=== PATIENT | female | born 1980 | race Caucasian/White ===

== ENCOUNTER 2023-07-15 23:03 | Emergency (ER) | payer BC, SELFPAY ==
[2023-07-15 23:06] VITALS: BP 137/76; PULSE 90; RESP 20; TEMP 37.1; O2SAT 100
--- NOTE | 2023-07-16 00:27 | ED.GENADULT ---
HPI - General Adult General Chief complaint: Skin/Abscess/Foreign Body Stated complaint: rash Time Seen by Provider: 07/16/23 00:19 Source: patient Mode of arrival: ambulatory Limitations: no limitations History of Present Illness HPI narrative: This is a 42-year-old female presents to the ED with chief complaint of a rash that started several days ago. Reports she woke up with paretic rash to the chest and abdomen. Reports that it started to spread to the arms and she went to the urgent care. She was given a steroid shot and reports that since having the steroid shot she has had more of a facial rash and intense itching. Denies any pain, fevers, chills, nausea, vomiting. She is concerned for possible infection because she uses a hot tub and saw some red streaks up the arm. Denies any bug bites, new soaps or lotions or any new skin contacts. No new pets. Related Data Allergies Allergy/AdvReac Type Severity Reaction Status Date / Time nickel Allergy Swelling Verified 07/16/23 00:30 Review of Systems Review of Systems: All systems as dictated in HPI Exam Narrative: GENERAL: Well-appearing, well-nourished, and in no acute distress. HEAD: Normocephalic, atraumatic. EYES: PERRLA and EOMI. ENT: Nares clear, no rhinorrhea or epistaxis. Mucous membranes moist. Oropharynx without tonsillar hypertrophy exudate or other lesions. NECK: Supple. No adenopathy or masses. CHEST: No respiratory distress. Clear to auscultation. No wheezes rales or rhonchi HEART: Regular rate and rhythm. No murmur heard. Normal peripheral pulses. ABDOMEN: Soft, nontender, nondistended, normal active bowel sounds. MSK: Normal range of motion. No edema. SKIN: Areas of maculopapular rash scattered throughout the torso, abdomen and arms. There is also rash around the face and periorbital area. Several urticaria noted as well. No mucosal involvement. NEURO: Alert and oriented x3. No focal deficits. PSYCH: Normal mood and affect. Course Vital Signs Vital signs: Vital Signs Temperature 98.8 F 07/15/23 23:06 Pulse Rate 90 07/15/23 23:06 Respiratory Rate 20 07/15/23 23:06 Blood Pressure 137/76 07/15/23 23:06 Pulse Oximetry 100 07/15/23 23:06 Oxygen Delivery Room Air 07/15/23 23:06 Temperature 98.8 F 07/15/23 23:06 Pulse Rate 90 07/15/23 23:06 Respiratory Rate 20 07/15/23 23:06 Blood Pressure 137/76 07/15/23 23:06 Pulse Oximetry 100 07/15/23 23:06 Oxygen Delivery Room Air 07/15/23 23:06 Medical Decision Making MDM Narrative Medical decision making narrative: This is a 42-year-old female who presents to the ED with chief complaint of allergic reaction x3 days. Vitals are normal. Exam shows urticarial rash diffusely. Airway intact. No angioedema. Unclear as to the etiology of her allergic reaction at this point. She has steroid prescription at home from urgent care and has Benadryl to take as well. Instructed to keep taking these medications. Follow-up with family doctor. Return precautions given. Patient is understanding and agreeable with plan for discharge and follow-up with PCP Vital Signs Vital Signs: Vital Signs Temperature 98.8 F 07/15/23 23:06 Pulse Rate 90 07/15/23 23:06 Respiratory Rate 20 07/15/23 23:06 Blood Pressure 137/76 07/15/23 23:06 Pulse Oximetry 100 07/15/23 23:06 Oxygen Delivery Room Air 07/15/23 23:06 Temperature 98.8 F 07/15/23 23:06 Pulse Rate 90 07/15/23 23:06 Respiratory Rate 20 07/15/23 23:06 Blood Pressure 137/76 07/15/23 23:06 Pulse Oximetry 100 07/15/23 23:06 Oxygen Delivery Room Air 07/15/23 23:06 Discharge Plan Discharge Clinical Impression: Allergic reaction Patient Disposition: Home, Self-Care Condition: Stable Instructions: Antibiotic Form Follow-up/Referrals: UNKNOWN,DOCTOR [Primary Care Provider] -
[2023-07-16] MEDS: FAMOTIDINE 20 MG TABLET PO (00:48)
[2023-07-16 04:32] LABS: Alanine Aminotransferase 21 U/L (6-35); Albumin Level 4.4 g/dL (3.5-5.1); Alkaline Phosphatase 56 U/L (38-126); Anion Gap 9 mmol/L (8-16); Aspartate Amino Transferase 23 U/L (14-36); Bilirubin,Total 0.5 mg/dL (0.2-1.3); Blood Urea Nitrogen 20 mg/dL (7-17); CRP 0.5 mg/dL (<1.0); Calcium 8.9 mg/dL (8.4-10.2); Carbon Dioxide 22 mmol/L (22-30); Chloride 104 mmol/L (98-107); Estimated CRCL calculation 88 ml/min; Estimated Glomerular Filt Rate > 60; Glucose 124 mg/dL (65-110); Sodium 135 mmol/L (137-145)
[2023-07-16 04:57] LABS: Hematocrit 39.4 % (37.0-47.0); Hemoglobin 12.5 g/dL (12.0-15.0); Immature Granulocyte Absolute 0.01 K/mm3 (0.00-0.031); Immature Granulocyte Percent A 0.1 % (0-0.5); Lymphocytes Absolute Auto 0.85 K/mm3 (0.9-3.2); Lymphocytes Percent Auto 11.6 % (18.3-44.2); Mean Corpuscular HGB Conc 31.7 g/dl (32-36); Mean Corpuscular Hemoglobin 27.5 pg (26-34); Mean Corpuscular Volume 86.6 fl (80-100); Mean Platelet Volume 11.1 fl (7.4-10.4); Monocytes Absolute Auto 0.2 K/mm3 (0.1-0.6); Monocytes Percent Auto 2.1 % (2.6-8.5); Neutrophils Absolute Auto 6.3 K/mm3 (1.3-6.7); Neutrophils Percent Auto 86.2 % (45.5-73.1); Platelet Count Result 293 k/mm3 (150-375); Red Blood Count 4.55 M/mm3 (4.2-5.4); Red Cell Distribution Width 12.8 % (11.5-14.5); White Blood Count 7.3 K/mm3 (4.5-10.0)
== END 2023-07-16 02:23 | disposition home or self-care (01) ==
LOC: ANHED 07-16 04:19
PROVIDERS: Emergency Provider Physician Assistant; PCP Family Medicine
DX: T78.40XA Allergy, unspecified, initial encounter (principal); L50.0 Allergic urticaria; X58.XXXA Exposure to other specified factors, initial encounter
CPT/HCPCS: 36415; 80053; 85025; 86140; 99283; A9270